=== PATIENT | female | born 1935 | race Caucasian/White ===

== ENCOUNTER 2016-09-04 13:38 | Outpatient (CLI) | payer OTHER ==
--- NOTE | 2016-09-07 08:52 | OP Clinic Progress Note ---
REFERRING PHYSICIAN: Dr. Chun Martini Dear Dr. 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 She otherwise feels well with no fevers, chills, sweats, chest pain, shortness of breath, cough or wheezing. 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 She has tried Neurontin and Lyrica but does not like the side effects. If she takes 1 Neurontin, she feels sleepy and wears out in about 2 or 3 hours. PRESENT MEDICATIONS: 1. Prednisone 5 mg daily. 2. Aspirin 81 mg daily. 3. Plaquenil 200 mg twice a day. 4. Meclizine as needed. 5. Potassium chloride 10 mEq daily. 6. Lasix 20 mg daily. REVIEW OF SYSTEMS: No fevers, chills, sweats, chest pain, shortness of breath, cough, wheezing, nausea, vomiting, or diarrhea. PHYSICAL EXAMINATION: GENERAL: On exam, she looks well. VITAL SIGNS: Her blood pressure today was 189/69. She notes that she did not take her Lasix this morning. Heart rate 80, respiratory rate of 12, temperature was 96.8. HEENT: Grossly unremarkable. LUNGS: Clear. HEART: Regular rate and rhythm. ABDOMEN: Soft. VASCULAR: No edema or cyanosis. SKIN: She has blanchable redness. No purpura. No periungual lesions. No toe ulcers. 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 PLAN: I would leave her on 5 mg of prednisone in addition to her Plaquenil instead so we can avoid more toxic medications. I asked her to try her gabapentin once a day but to take it at bedtime since that is when her symptoms bother her the most. She is going to keep an eye on her blood pressure. I will see her back in 6 months. Thank you very much for the opportunity to participate in the care of your patient. Best regards, cc: Dr. Chun THOMPSON
== END 2016-09-04 13:41 ==
LOC: RHEU 13:38
PROVIDERS: ATTEND Internal Medicine
DX: M32.9 Systemic lupus erythematosus, unspecified (principal)
CPT/HCPCS: 99213

== ENCOUNTER 2017-03-05 10:50 | Outpatient (CLI) | payer OTHER ==
--- NOTE | 2017-03-08 15:33 | OP Clinic Progress Note ---
REASON FOR VISIT: Lillian Hinds returns for follow up on her systemic lupus and associated vasculitis. She is on Plaquenil 200 mg twice a day, prednisone 5 mg daily, and aspirin 81 mg daily. She is doing well with no new skin lesions. No progression. No blue or painful toes. Furthermore, no fevers, chills, sweats, chest pain, shortness of breath, cough, or wheezing. Her postherpetic neuralgia on the right side of her face is improved with less pain. REVIEW OF SYSTEMS: As above. PHYSICAL EXAMINATION: VITAL SIGNS: T: 97, R: 12, heart rate 72, BP: 160/80. HEENT: Sclerae are anicteric. Conjunctivae are pink. No stomatitis or glossitis. External ears and nose are unremarkable. LUNGS: Clear. HEART: Regular rhythm. ABDOMEN: Soft. VASCULAR: No edema or cyanosis. Good pulses. Good capillary refill, just a little bit of periungual erythema of the toes but no palpable purpura. IMPRESSION: Lupus vasculitis, stable. PLAN: Leave her on her present regimen. We will check Avise lupus activity score, otherwise, I will see her in 6 months. She knows to call us immediately if she has recurrence of painful, cyanotic toes or other manifestations. cc: Dr. Chun THOMPSON
== END 2017-03-05 10:52 ==
LOC: RHEU 10:50
PROVIDERS: ATTEND Internal Medicine
DX: M32.9 Systemic lupus erythematosus, unspecified (principal)
CPT/HCPCS: 36415; G0463

== ENCOUNTER 2017-10-01 13:09 | Outpatient (CLI) | payer OTHER ==
--- NOTE | 2017-10-04 12:11 | OP Clinic Progress Note ---
REASON FOR VISIT: Lillian Hinds returns for what appears to be systemic lupus having presented with vasculitis of her lower extremities. As I have not seen her in 6 months, she has noted some increasing redness, tenderness, and itching of her toes on the right foot in the past week. Otherwise, she has had no fevers, chills, sweats, chest pain, shortness of breath, cough or wheezing. She recently was treated for otitis. Let us recall that she had severe zoster involving the right side of her face in 2013. She continues to have some discomfort mainly some itching in the region. Otherwise, she has had no fevers, chills, sweats, chest pain, shortness of breath, cough or wheezing. She has had no change in her medications. PRESENT MEDICATIONS: 1. Prednisone 5 mg daily. 2. Plaquenil 200 mg twice a day. PHYSICAL EXAMINATION: GENERAL: She looks well. VITAL SIGNS: Height: 5 feet 2 inches. Weight: 150. BP: 150/74, heart rate 80, R: 20, T: 97.7. HEENT: Sclerae are anicteric. Conjunctivae are pink. No stomatitis or glossitis. LUNGS: Clear. HEART: Regular rate and rhythm. She has a 3/6 holosystolic murmur. ABDOMEN: Soft and nontender. VASCULAR: No edema or cyanosis. Good pulses. Good capillary refill. She has some slight reddish discoloration of her toes at the periungual region. IMPRESSION: 1. Lupus vasculitis, active. 2. Postherpetic neuralgia, facial, on the right. 3. Avise SLE monitoring test report shows no evidence of activity. PLAN: 1. I am bumping up her prednisone to 5 mg twice a day and she is going to call if she fails to improve. 2. I offered her Neurontin, but she prefers not to proceed at this time. Thank you very much. Best regards, cc: Dr. Chun THOMPSON
== END 2017-10-01 13:10 ==
LOC: RHEU 13:09
PROVIDERS: ATTEND Internal Medicine
DX: L93.2 Other local lupus erythematosus (principal); B02.29 Other postherpetic nervous system involvement
CPT/HCPCS: 99214; G0463

== ENCOUNTER 2018-04-01 13:00 | Outpatient (CLI) | payer OTHER ==
--- NOTE | 2018-04-01 17:13 | OP Clinic Progress Note ---
Dear Dr. Martini: REASON FOR VISIT: I had the pleasure of seeing your patient, Lillian Hinds, in follow up for systemic lupus presenting as cutaneous vasculitis of the lower extremities. She is doing well. She is taking prednisone 5 mg daily and at times 5 mg twice a day and continues on Plaquenil 200 mg twice a day. She still has a little redness in her feet but no blue toes. No cold toes. No burning sensations. Rest of the systems were reviewed, no fevers, chills, sweats, chest pain, shortness of breath, cough, wheezing, nausea, vomiting, or diarrhea. Since I last saw her, she was treated for an ear infection on the right. PRESENT MEDICATIONS: As above. PHYSICAL EXAMINATION: GENERAL: She looks well. VITAL SIGNS: Height: 5 feet 2 inches. Weight: 148. T: 96.4, R: 20, heart rate 80, BP: 170/70. HEENT: Grossly unremarkable. LUNGS: Clear. HEART: Regular rate and rhythm. ABDOMEN: Soft. VASCULAR: No edema or cyanosis. PERIPHERAL JOINTS: Changes of OA, otherwise, no synovitis of the toes. No cyanosis. She has a little bit of periungual erythema. The toes are warm. Sensation is intact. Pedal pulse is appreciated. LABORATORY: I reviewed her labs from November. Creatinine and CBC are unremarkable. IMPRESSION: Lupus vasculitis, improved. PLAN: I am going to decrease her prednisone to 5 mg daily and see her back in 4 months. Thank you very much for the opportunity to participate in the care of your patients. Best regards, cc: Dr. Chun THOMPSON
== END 2018-04-01 13:02 ==
LOC: RHEU 13:00
PROVIDERS: ATTEND Internal Medicine
DX: M32.9 Systemic lupus erythematosus, unspecified (principal)
CPT/HCPCS: 99214; G0463